=== PATIENT | female | born 1980 | race Caucasian/White ===

== ENCOUNTER 2017-01-24 14:57 | Emergency (ER) | payer MEDICAID, OTHER ==
[2017-01-24 17:01] VITALS: BP 136/73
[2017-01-24] MEDS ORDERED: Sodium Chloride 0.9% 1,000 ML IV ONE (17:02)
--- NOTE | 2017-01-24 17:07 | EDM.PDOC ---
ED HPI GENERAL MEDICAL PROBLEM - General Chief Complaint: General Stated Complaint: 16 WKS PG, SICK Time Seen by Provider: 01/24/17 17:03 Source of Information: Reports: Patient History Limitations: Reports: No Limitations - History of Present Illness INITIAL COMMENTS - FREE TEXT/NARRATIVE: 36 yo white female c/o left lower abdomen pain which goes across lower abdomen since last night. No chills or fever Onset Date: 01/23/17 Onset Time: 18:00 Duration: Hour(s): Location: Reports: Abdomen (LLQ ) Quality: Reports: Ache Severity: Moderate Left Flank Pain Score (Numeric/FACES): 8 - Related Data Allergies Allergy/AdvReac Type Severity Reaction Status Date / Time No Known Allergies Allergy Verified 01/24/17 16:26 Home Meds: Home Meds Sulfamethoxazole/Trimethoprim [Bactrim Ds Tablet] 1 each PO BID 09/04/15 [ History] Vit37/Iron/Folic Acid [Prenata] 1 tab PO DAILY 01/24/17 [History] Past Medical History - Past Health History Medical/Surgical History: Denies Medical/Surgical History HEENT History: Reports: None Cardiovascular History: Reports: None Respiratory History: Reports: None Gastrointestinal History: Reports: None Genitourinary History: Reports: None [employer]AS[employer]ER History: Reports: None Musculoskeletal History: Reports: None Neurological History: Reports: None Psychiatric History: Reports: None Endocrine/Metabolic History: Reports: None Hematologic History: Reports: None Immunologic History: Reports: None Oncologic (Cancer) History: Reports: None Dermatologic History: Reports: None - Infectious Disease History Infectious Disease History: Reports: Chicken Pox - Past Surgical History Head Surgeries/Procedures: Reports: None Female Surgical History: Reports: Other (See Below) Social & Family History - Family History Family Medical History: Noncontributory - Tobacco Use Smoking Status *Q: Current Every Day Smoker Years of Tobacco use: 20 Packs/Tins Daily: 0.5 Used Tobacco, but Quit: No Second Hand Smoke Exposure: No - Caffeine Use Caffeine Use: Reports: Coffee, Soda - Recreational Drug Use Recreational Drug Use: No ED ROS GENERAL - Review of Systems Review Of Systems: See Below Constitutional: Reports: No Symptoms HEENT: Reports: No Symptoms Respiratory: Reports: No Symptoms Cardiovascular: Reports: No Symptoms Endocrine: Reports: No Symptoms GI/Abdominal: Reports: Abdominal Pain (LLQ and across lower abdomen) : Reports: No Symptoms Musculoskeletal: Reports: No Symptoms Skin: Reports: No Symptoms Neurological: Reports: No Symptoms Psychiatric: Reports: No Symptoms Hematologic/Lymphatic: Reports: No Symptoms Immunologic: Reports: No Symptoms ED EXAM, GENERAL - Physical Exam Exam: See Below Exam Limited By: No Limitations General Appearance: Alert, No Apparent Distress, Obese Eye Exam: Bilateral Eye: EOMI, PERRL Ears: Normal External Exam GI/Abdominal: Tender (LLQ and across low abdomen) Back Exam: Normal Inspection Extremities: Normal Inspection, Normal Range of Motion Neurological: Alert, Oriented, CN II-XII Intact Psychiatric: Normal Affect Skin Exam: Warm, Dry Lymphatic: No Adenopathy Course - Vital Signs Last Recorded V/S: Last Vital Signs Temp 36.2 C 01/24/17 17:00 Pulse 78 01/24/17 17:00 Resp 18 01/24/17 17:00 BP 136/73 01/24/17 17:00 Pulse Ox 100 01/24/17 17:00 - Orders/Labs/Meds Labs: Laboratory Tests 01/24/17 01/24/17 01/24/17 Range/Units 16:30 16:30 16:30 WBC (5.0-10.0) 10^3/uL RBC (4.2-5.4) 10^6/uL Hgb (12.0-16.0) g/dL Hct (37.0-47.0) % MCV (80-100) fL MCH (27.0-34.0) pg MCHC (33.0-35.0) g/dL Plt Count (150-450) 10^3/uL Neut % (Auto) (42.2-75.2) % Lymph % (Auto) (20.5-50.1) % [place] % (Auto) (2-8) % Eos % (Auto) (1.0-3.0) % Baso % (Auto) (0.0-1.0) % Sodium (135-145) mmol/L Potassium (3.6-5.0) mmol/L Chloride (101-111) mmol/L Carbon Dioxide (21.0-31.0) mmol/L Anion Gap BUN (7-18) mg/dL Creatinine (0.6-1.3) mg/dL Est Cr Clr Drug Dosing mL/min Estimated GFR (MDRD) BUN/Creatinine Ratio Glucose (74-105) mg/dL Calcium (8.4-10.2) mg/dl Total Bilirubin (0.2-1.0) mg/dL AST (10-42) IU/L ALT (10-60) IU/L Alkaline Phosphatase (42-121) IU/L Total Protein (6.7-8.2) g/dl Albumin (3.2-5.5) g/dl Globulin Albumin/Globulin Ratio Urine Color Dark yellow (YELLOW) Urine Appearance Cloudy (CLEAR) Urine pH 6.0 (5.0-9.0) Ur Specific [place] 1.025 (1.005-1.030) Urine Protein 30 H (NEGATIVE) Urine Glucose (UA) Negative (NEGATIVE) Urine Ketones 40 H (NEGATIVE) Urine Occult Blood Negative (NEGATIVE) Urine Nitrite Negative (NEGATIVE) Urine Bilirubin Small H (NEGATIVE) Urine Urobilinogen 0.2 (0.2-1.0) mg/dL Ur Leukocyte Esterase Negative (NEGATIVE) Urine RBC 0-5 /HPF Urine WBC 5-10 H (0-5/HPF) /HPF Ur Epithelial Cells Many H /HPF Calcium Oxalate Crystal Rare /HPF Amorphous Sediment Rare (0/HPF) /HPF Urine Bacteria Moderate H (0-FEW/HPF) /HPF Urine Mucus Many H /LPF Urine Yeast Rare H (0/HPF) /HPF Urine HCG, Qual Positive Urine Opiates Screen Negative (NEGATIVE) Ur Oxycodone Screen Negative (NEGATIVE) Urine Methadone Screen Negative (NEGATIVE) Ur Barbiturates Screen Negative (NEGATIVE) U Tricyclic Antidepress Negative (NEGATIVE) Ur Phencyclidine Scrn Negative (NEGATIVE) Ur Amphetamine Screen Negative (NEGATIVE) U Methamphetamines Scrn Negative (NEGATIVE) Urine MDMA Screen Negative (NEGATIVE) U Benzodiazepines Scrn Negative (NEGATIVE) Urine Cocaine Screen Negative (NEGATIVE) U Marijuana (THC) Screen Negative (NEGATIVE) 01/24/17 01/24/17 Range/Units 17:12 17:12 WBC 12.4 H (5.0-10.0) 10^3/uL RBC 4.54 (4.2-5.4) 10^6/uL Hgb 13.3 (12.0-16.0) g/dL Hct 40.0 (37.0-47.0) % MCV 88.1 (80-100) fL MCH 29.3 (27.0-34.0) pg MCHC 33.3 (33.0-35.0) g/dL Plt Count 287 (150-450) 10^3/uL Neut % (Auto) 74.8 (42.2-75.2) % Lymph % (Auto) 16.3 L (20.5-50.1) % [place] % (Auto) 6.0 (2-8) % Eos % (Auto) 2.7 (1.0-3.0) % Baso % (Auto) 0.2 (0.0-1.0) % Sodium 138 (135-145) mmol/L Potassium 3.6 (3.6-5.0) mmol/L Chloride 104 (101-111) mmol/L Carbon Dioxide 21.0 (21.0-31.0) mmol/L Anion Gap 16.6 BUN 9 (7-18) mg/dL Creatinine 0.6 (0.6-1.3) mg/dL Est Cr Clr Drug Dosing 122.51 mL/min Estimated GFR (MDRD) > 60 BUN/Creatinine Ratio 15.00 Glucose 95 (74-105) mg/dL Calcium 9.3 (8.4-10.2) mg/dl Total Bilirubin 0.4 (0.2-1.0) mg/dL AST 16 (10-42) IU/L ALT 15 (10-60) IU/L Alkaline Phosphatase 58 (42-121) IU/L Total Protein 7.5 (6.7-8.2) g/dl Albumin 3.2 (3.2-5.5) g/dl Globulin 4.3 Albumin/Globulin Ratio 0.74 Urine Color (YELLOW) Urine Appearance (CLEAR) Urine pH (5.0-9.0) Ur Specific [place] (1.005-1.030) Urine Protein (NEGATIVE) Urine Glucose (UA) (NEGATIVE) Urine Ketones (NEGATIVE) Urine Occult Blood (NEGATIVE) Urine Nitrite (NEGATIVE) Urine Bilirubin (NEGATIVE) Urine Urobilinogen (0.2-1.0) mg/dL Ur Leukocyte Esterase (NEGATIVE) Urine RBC /HPF Urine WBC (0-5/HPF) /HPF Ur Epithelial Cells /HPF Calcium Oxalate Crystal /HPF Amorphous Sediment (0/HPF) /HPF Urine Bacteria (0-FEW/HPF) /HPF Urine Mucus /LPF Urine Yeast (0/HPF) /HPF Urine HCG, Qual Urine Opiates Screen (NEGATIVE) Ur Oxycodone Screen (NEGATIVE) Urine Methadone Screen (NEGATIVE) Ur Barbiturates Screen (NEGATIVE) U Tricyclic Antidepress (NEGATIVE) Ur Phencyclidine Scrn (NEGATIVE) Ur Amphetamine Screen (NEGATIVE) U Methamphetamines Scrn (NEGATIVE) Urine MDMA Screen (NEGATIVE) U Benzodiazepines Scrn (NEGATIVE) Urine Cocaine Screen (NEGATIVE) U Marijuana (THC) Screen (NEGATIVE) Meds: Medications Discontinued Medications Generic Name Dose Route Start Last Admin Trade Name Freq PRN Reason Stop Dose Admin Sodium Chloride 1,000 mls @ 999 mls/hr 01/24/17 17:02 01/24/17 17:15 Normal Saline IV 01/24/17 18:02 999 mls/hr .BOLUS ONE Administration Departure - Departure Time of Disposition: 18:22 Disposition: Home, Self-Care 01 Condition: Good Clinical Impression: Dehydration during , Morbid obesity - Discharge Information Forms: ED Department Discharge Additional Instructions: Rest Increase intake of Fluids ( Water and Juice) F/U w/ PCp
[2017-01-24 17:36] LABS: CHLORIDE,CL 104 mmol/L (101-111); SODIUM,NA 138 mmol/L (135-145)
== END 2017-01-24 18:36 | disposition home or self-care (01) ==
LOC: DL.ED 14:57
DX: O09.512 Supervision of elderly primigravida, second trimester (principal); O99.212 Obesity complicating pregnancy, second trimester; O99.332 Smoking (tobacco) complicating pregnancy, second trimester; F17.210 Nicotine dependence, cigarettes, uncomplicated; E66.01 Morbid (severe) obesity due to excess calories; Z3A.16 16 weeks gestation of pregnancy; E86.0 Dehydration
CPT/HCPCS: 36415; 80053; 80305; 81001; 81025; 85025; 96360; 99283; J7030